=== PATIENT | male | born 1970 | race Caucasian/White ===

== ENCOUNTER 2020-05-03 10:22 | Emergency (ER) | payer OTHER, SELFPAY ==
[2020-05-03 10:34] VITALS: BP 149/89; PULSE 92; RESP 14; TEMP 36.9; O2SAT 99; BMI 44.4
[2020-05-03 13:03] LABS: COVID19 -Nasal RAPID Negative (Negative)
[2020-05-03 13:19] VITALS: BP 140/83; PULSE 85; RESP 16; O2SAT 98
--- NOTE | 2020-05-04 07:17 | ED.NAVMDI ---
HPI - Nausea/Vomiting/Diarrhea General Chief complaint: Nausea/Vomiting/Diarrhea Stated complaint: COVID Testing . 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 The patient woke up with a headache that was bifrontal associated with upset stomach and nausea. The patient did not have any vomiting or diarrhea change in bowel habits. He denies any history of melena or hematochezia. His stools were loosened soft but not diarrhea. He denies any fall or injury to his head neck chest back. He has headaches very infrequently. He states that he would have normally taken a mother lever ibuprofen for his headache. At the present time his headache is insignificant and does not need any pain medicine. The patient informed the captain of the ship who called their corporate office and sent the patient into the emergency department to be evaluated and to obtain a Covid test before leaving port. The patient states that he would not have come into the emergency department to be evaluated except that was required by his corporate medical. [employer] [facility] was requiring the patient has a Covid test before returning to work. Related Data Allergies Allergy/AdvReac Type Severity Reaction Status Date / Time Penicillins Allergy Verified 05/03/20 10:37 Review of Systems Review of Systems Narrative: The patient's review of systems were all negative except for those mentioned in the history of present illness Patient History Social History Smoking Status: Unknown if ever smoked Smoking Status: Unknown if ever smoked alcohol intake frequency: holidays/special occasions only Substance Use Type: does not use Exam Narrative Exam Narrative: PHYSICAL EXAM: CONSTITUTIONAL: Awake, Alert, Oriented, Coherent, Cooperative in NAD. Does not appear toxic or ill. HEAD: AT/NC, sinuses are not tender. EENT: PERRL, FROM of eyes, no discharge, no nystagmus NOSE:No epistaxis or nasal drainage MOUTH:Oral mucosa is moist and pink, posterior pharynx is without erythema or exudate. NECK: Supple, no obvious JVD, Trachea is midline without stridor, no palpable LN. SPINE: Palpationof the cervical, Thoracic, Lumbar or Sacral spine reveals no gross deformity or tenderness. No CVA tenderness. THORAX: No deformity, retractions, chest wall tenderness. LUNGS: Clear, symmetrical breath sounds without respiratory distress. HEART: Normal heart tones, regular rhythm and rate without murmur. ABDOMEN: Soft, non-tender, no guarding, rebound, rigidity or palpable mass. EXTREMITIES: No edema, deformity, tenderness or cyanosis. SKIN: No rash, bruising, petechiae or purpura. NEURO: Awake, alert, oriented, conversive, cranial nerves II-XII are symmetrical , moves all 4 extremities and is ambulatory. MENTAL HEALTH: Does not appear anxious or depressed. Initial Vital Signs Initial Vital Signs: Vital Signs Temperature 98.4 F 05/03/20 10:34 Pulse Rate 92 H 05/03/20 10:34 Respiratory Rate 14 05/03/20 10:34 Blood Pressure 149/89 H 05/03/20 10:34 Pulse Oximetry 99 05/03/20 10:34 MDM - Nausea/Vomiting/Diarrhea Lab Data Labs: Lab Results 05/03/20 Range/Units 11:27 COVID-19 PCR Negative (Negative) Discharge Plan Departure Patient Disposition: Home Clinical Impression: Nausea Headache Qualifiers: Headache type: unspecified Headache chronicity pattern: acute headache Intractability: not intractable Qualified Code(s): R51 - Headache Discharge Date/Time: 05/03/20 13:28 Instructions: DI for Migraine, DI for Headache Activity Restrictions/Additional Instructions: 1. your bifrontal headache associated with nausea and upset stomach and history of migraines as a youth may be a migraine variant. 2. For your headache you can take Tylenol, ibuprofen, or Aleve as you normally do. 3. A Covid test has been ordered as requested. 4. Other than the results of your Covid test you are fit to return to work 5. Drink between 2 in 4 liters of fluid per day
== END 2020-05-03 13:28 | disposition home or self-care (01) ==
PROVIDERS: Emergency Provider Emergency Medicine
DX: R11.0 Nausea (principal); R51 Headache; Z11.59 Encounter for screening for other viral diseases
CPT/HCPCS: 87635; 99282